=== PATIENT | male | born 1955 | race Caucasian/White ===

== ENCOUNTER 2020-08-05 08:24 | Day surgery (SDC) | payer MEDICAID ==
[2020-08-05] VITALS (8 sets, daily range): BP systolic 88–96; BP diastolic 54–69
[~2020-08-05] VITALS: Ht 170.2 cm; Wt 68.7 kg
[2020-08-05] MEDS ORDERED: albumin 25% 100mL bottle x 1 IV PRN (09:00)
[2020-08-05] MEDS ORDERED: NICO-687 TOP (09:26)
[2020-08-05] MEDS ORDERED: MORP15TA PO (09:26)
[2020-08-05] MEDS ORDERED: OMEP40CA13 PO (09:27)
[2020-08-05 09:37] LABS: BASOPHILS % (AUTO) 0.4 % (0-1); EOSINOPHILS # (AUTO) 0.1 X10'3 (0-0.9); EOSINOPHILS % (AUTO) 1.1 % (0-6); HEMATOCRIT 32.6 % (42.0-52.0); HEMOGLOBIN 11.1 g/dl (14.0-17.9); LYMPHOCYTES # (AUTO) 1.3 X10'3 (1.1-4.8); LYMPHOCYTES % (AUTO) 11.5 % (21-51); MEAN CORPUSCULAR HEMOGLOBIN 34.1 PG (27.0-31.0); MEAN CORPUSCULAR HGB CONC 34.1 g/dL (33.0-36.5); MEAN CORPUSCULAR VOLUME 99.9 FL (78-98); MEAN PLATELET VOLUME 8.2 FL (7.4-10.4); MONOCYTES # (AUTO) 0.7 X10'3 (0-0.9); MONOCYTES % (AUTO) 6.5 % (2-12); NEUTROPHILS % (AUTO) 80.5 % (42-75); PLATELET COUNT 353 X10'3 (140-440); RED BLOOD COUNT 3.26 X10'6 (4.70-6.10); RED CELL DISTRIBUTION WIDTH 14.5 % (11.5-14.5); WHITE BLOOD COUNT 11.1 X10'3 (4.5-11.0)
[2020-08-05 09:46] LABS: ALBUMIN 1.8 G/DL (3.4-5.0); ANION GAP 10 (8-16); BLOOD UREA NITROGEN 41 MG/DL (7-18); CALCIUM 8.2 MG/DL (8.5-10.1); CHLORIDE 101 MMOL/L (99-107); CREATININE 1.28 MG/DL (0.60-1.10); GLUCOSE 136 MG/DL (70-104); POTASSIUM 4.9 MMOL/L (3.5-5.1); SODIUM 133 MMOL/L (135-145); TOTAL CARBON DIOXIDE 22.5 MMOL/L (24-32); eGFR 57 ML/MIN
[2020-08-05] MEDS ORDERED: fentaNYL/PF 50MCG/1 ML 2ML syringe ONE (09:58)
[2020-08-05] MEDS ORDERED: albumin (human) 25% 100 ML IV solution IV ONE (10:50)
[2020-08-05] MEDS ORDERED: HYDROcodone/acetaminophen 10/325mg tab PO ONE (11:55)
== END 2020-08-05 13:10 | disposition home or self-care (01) ==
LOC: SSTAY O 08:24
PROVIDERS: ATTEND Radiology Diagnostic Radiology
DX: R18.8 Other ascites (principal); C22.0 Liver cell carcinoma; K74.69 Other cirrhosis of liver; Z79.899 Other long term (current) drug therapy
CPT/HCPCS: 36415; 49083; 49418; 80048; 82948; 85025; J3010; P9047